=== PATIENT | female | born 2000 | race Caucasian/White ===

== ENCOUNTER 2020-11-13 14:22 | Emergency (ER) | payer OTHER ==
[2020-11-13] MEDS ORDERED: ACETAMINOPHEN 325 MG TABLET ONE (16:20)
[2020-11-13] MEDS ORDERED: IBUPROFEN 400 MG TAB ONE (16:20)
--- NOTE | 2020-11-13 16:24 | EDPHYS ---
Physician Documentation [facility] Name: Araceli Martinez Age: 20 yrs Sex: Female : 2000 Arrival Date: 11/13/2020 Time: 14:25 Bed 26 Private MD: ED Physician Michael Russ HPI: 11/13 15:50 This 20 yrs old Female presents to ER via Ambulatory with complaints of Wrist cp Injury, Hand Injury. 15:50 The patient or guardian complains of injury, pain, that is acute, swelling, tenderness. cp The complaints affect the right wrist and right hand. Context: Patient reports she struck hand and wrist against trailer causing injury. Patient reports immediately after striking hand, felt like thumb dislocated. 15:50 Onset: The symptoms/episode began/occurred today. Treatment prior to arrival includes: cp no previous treatment. Associated signs and symptoms: Pertinent positives: pain, swelling, tingling, abrasion. PATTERN FITTER: 14:39 LMP 11/02/2020 ca1 Historical: - Allergies: 14:39 No Known Allergies; ca1 - Home Meds: 14:39 None [Active]; ca1 - PMHx: 14:39 None; ca1 - PSHx: 14:39 None; ca1 - Immunization history:: Flu vaccine is not up to date. - Social history:: Smoking status: Patient denies any tobacco usage or history of. ROS: 15:55 MS/extremity: Positive for pain, swelling, tenderness, of the right wrist and right cp hand, injury. 15:55 Constitutional: Negative for fever. cp 15:55 Skin: Negative for rash. 15:55 Neuro: Positive for tingling, of the right hand. 15:55 All other systems are negative. Exam: 16:00 Constitutional: The patient appears in no acute distress, alert, awake, well developed, cp well nourished, uncomfortable. 16:00 Musculoskeletal/extremity: Extremities: grossly normal except: noted in the right hand cp and right wrist: pain, swelling, tenderness, noted to right thumb and right index finger, pain with range of motion, There is no evidence of decreased ROM, deformity, Perfusion: the extremity is normally perfused throughout, the distal right thumb and right index finger Tingling of extremity. 16:00 Skin: injury, abrasion(s), moderate sized abrasion noted, of the across dorsum of right thumb extending proximal to wrist. Vital Signs: 14:39 BP 138 / 92; Pulse 93; Resp 16 S; Temp 98.6(TE); Pulse Ox 99% on R/A; Weight 112.94 kg ca1 (R); Height 5 ft. 3 in. (160.02 cm) (R); Pain 8/10; 14:39 Body Mass Index 44.11 (112.94 kg, 160.02 cm) ca1 Procedures: 17:00 Splinting: Splint applied to right wrist and right hand using thumb spica type wrist cp splint. applied by nurse. Examined by me, post splint application: neurovascular intact, Patient tolerated well. MDM: 15:45 Patient medically screened. cp 16:00 Differential diagnosis: dislocation, closed fracture, contusion. cp 16:22 Data reviewed: vital signs, nurses notes, radiologic studies, plain films, and as a cp result, I will discharge patient. 16:22 Test interpretation: by ED physician or midlevel provider: xrays of right hand negative cp for fracture. Counseling: I had a detailed discussion with the patient and/or guardian regarding: the historical points, exam findings, and any diagnostic results supporting the discharge/admit diagnosis, radiology results, to return to the emergency department if symptoms worsen or persist or if there are any questions or concerns that arise at home. Response to treatment: the patient's symptoms have markedly improved after treatment, and as a result, I will discharge patient. 11/13 15:46 Order name: XRAY Hand RIGHT 3 View cp 11/13 16:20 Order name: Splint - Thumb Spica; Complete Time: 16:56 cp Administered Medications: 16:10 Drug: Ibuprofen 800 mg Route: PO; iw 16:10 Drug: Tylenol 650 mg Route: PO; iw Disposition: 17:00 Chart complete. cp Disposition: 11/13/20 16:23 Discharged to Home. Impression: Contusion of right hand. - Condition is Stable. - Discharge Instructions: Hand Contusion. - Prescriptions for Naprosyn 500 mg Oral Tablet - take 1 tablet by ORAL route 2 times per day take with food; 20 tablet. - Medication Reconciliation Form, Thank You Letter, Antibiotic Education, Prescription Opioid Use form. - Follow up: Young Hodges MD; When: 1 week; Reason: Worsening of condition. - Problem is new. - Symptoms have improved. Addendum: 11/15/2020 18:34 Co-signature as Attending Physician, Michael Russ MD. m a2 Signatures: Dispatcher [employer] Christiane Gomez RN RN iw Flakito Soler PA PA cp Michael Russ MD MD ma2 Oriana Cannon RN RN ca1 Corrections: (The following items were deleted from the chart) 11/13 16:56 16:23 11/13/2020 16:23 Discharged to Home. Impression: Contusion of right hand. iw Condition is Stable. Forms are Medication Reconciliation Form, Thank You Letter, Antibiotic Education, Prescription Opioid Use. Follow up: Young Hodges; When: 1 week; Reason: Worsening of condition. Problem is new. Symptoms have improved. cp 11/14 09:49 09:48 MS/extremity: Positive for pain, swelling, tenderness, of the right wrist and cp right hand, injury, cp
--- NOTE | 2020-11-13 16:24 | ER ---
Nurse's Notes [facility] Name: Araceli Martinez Age: 20 yrs Sex: Female : 2000 Arrival Date: 11/13/2020 Time: 14:25 Bed 26 Private MD: Diagnosis: Contusion of right hand Presentation: 11/13 14:34 Chief complaint: Patient states: Hit R hand on an edge of a trailer 2 hours ago. Saw R ca1 thumb was out of place, moved it and heard a pop and seem to have been back in place. Reports pain and limited ROM on R index finger and R thumb. Reports numbness on R inner wrist. Coronavirus screen: Client denies travel out of the [place] in the last 14 days. At this time, the client does not indicate any symptoms associated with coronavirus-19. Ebola Screen: Patient negative for fever greater than or equal to 101.5 degrees Fahrenheit, and additional compatible Ebola Virus Disease symptoms Patient denies exposure to infectious person. Patient denies travel to an Ebola-affected area in the 21 days before illness onset. No symptoms or risks identified at this time. Initial Sepsis Screen: Does the patient meet any 2 criteria? No. Patient's initial sepsis screen is negative. Does the patient have a suspected source of infection? No. Patient's initial sepsis screen is negative. Risk Assessment: Do you want to hurt yourself or someone else? Patient reports no desire to harm self or others. Onset of symptoms was November 13, 2020. 14:34 Method Of Arrival: Ambulatory ca1 14:34 Acuity: CHUY 4 ca1 TITLE AGENT: 14:39 [facility] 11/02/2020 ca1 Historical: - Allergies: 14:39 No Known Allergies; ca1 - Home Meds: 14:39 None [Active]; ca1 - PMHx: 14:39 None; ca1 - PSHx: 14:39 None; ca1 - Immunization history:: Flu vaccine is not up to date. - Social history:: Smoking status: Patient denies any tobacco usage or history of. Vital Signs: 14:39 BP 138 / 92; Pulse 93; Resp 16 S; Temp 98.6(TE); Pulse Ox 99% on R/A; Weight 112.94 kg ca1 (R); Height 5 ft. 3 in. (160.02 cm) (R); Pain 8/10; 14:39 Body Mass Index 44.11 (112.94 kg, 160.02 cm) ca1 ED Course: 14:25 Patient arrived in ED. as 14:38 Triage completed. ca1 14:39 Arm band placed on right wrist. ca1 15:40 Christiane Hernandez, RN is Primary Nurse. iw 15:41 Flakito Soler PA is PHCP. cp 15:41 Michael Russ MD is Attending Physician. cp 16:19 XRAY Hand RIGHT 3 View In Process Unspecified. EDMS 16:22 Young Hodges MD is Referral Physician. cp Administered Medications: 16:10 Drug: Ibuprofen 800 mg Route: PO; iw 16:10 Drug: Tylenol 650 mg Route: PO; iw Outcome: 16:23 Discharge ordered by . cp 16:56 Patient left the ED. iw Signatures: Dispatcher [employer] EDMS Giana Connolly as Christiane Hernandez RN RN iw Flakito Soler PA PA cp Oriana Cannon RN RN ca1
--- NOTE | 2020-11-13 16:39 | RAD REPORT ---
EXAM DESCRIPTION: RAD - Hand Right 3 View - 11/13/2020 4:19 pm CLINICAL HISTORY: Right hand pain FINDINGS: No fracture or dislocation is seen.
[2020-11-14 05:19] VITALS: BP 138/92; TEMP 98.6; O2SAT 99
== END 2020-11-13 16:56 | disposition home or self-care (01) ==
LOC: ER 14:22
DX: S60.221A Contusion of right hand, initial encounter (principal); W22.8XXA Striking against or struck by other objects, initial encounter; Y93.9 Activity, unspecified; Y92.9 Unspecified place or not applicable
CPT/HCPCS: 99283